=== PATIENT | male | born 1980 | race Caucasian/White ===

== ENCOUNTER 2023-04-03 15:13 | Outpatient (CLI) | payer OTHER, SELFPAY ==
--- NOTE | 2023-04-03 15:30 | MR_ITS ---
[facility] [address] [facility] [address] Phone:?[phone] Fax:?[phone] Referring Physician Information: Virgil Massey M.D. [address] [facility] [address] Phone:?[phone] Fax:?[phone] Patient:Darrin Tse D.O.B:?1980 Sex:?Male Phone:?[phone] [facility] MRN:?[id number] Exam Date:?04/03/2023 EXAM: MRI of the LEFT KNEE, without contrast CLINICAL: Left knee pain. Evaluate for meniscal tear. COMPARISONS: X-rays dated 03/15/2023. TECHNICAL: Multiplanar multisequence MRI of the left knee was obtained. SEDATION: None. CONTRAST: None. FINDINGS: Ligaments: ACL: Intact and unremarkable. PCL: Intact and unremarkable. MCL: Intact and unremarkable. LCL: Intact and unremarkable. Posterolateral corner: Popliteus, biceps femoris, iliotibial band, and the popliteofibular ligament appear intact. Posteromedial corner: Semimembranosus, pes anserine tendons and posterior oblique ligament appear intact. Extensor mechanism: Patellar tendon: Intact, without tendinopathy. Quadriceps tendon: Intact, without tendinopathy. Retinacula: Medial and lateral retinacula are intact. Fat pads: Unremarkable infrapatellar Hoffa's, quadriceps and prefemoral fat pads. Patellofemoral joint: Patella: There is mild chondral heterogeneity and surface irregularity involving the patella. No chondral defects. Trochlea: There is chondral heterogeneity and deep chondral fissuring involving the central trochlea. Trochlear cartilage otherwise appears maintained. Medial compartment: Medial meniscus: No evidence of discrete meniscal tear or meniscal displacement. Medial cartilage: Small 4 mm segment of high-grade chondral loss involving the lateral aspect of the weightbearing medial femoral condyle on coronal series 8 image 21-22. Medial tibial plateau cartilage is maintained. Lateral compartment: Lateral meniscus: No evidence of discrete meniscal tear or meniscal displacement. Lateral cartilage: No significant chondromalacia. Knee joint: Effusion: Physiologic left knee effusion. Intra-articular bodies:?No convincing bodies identified. Popliteal cyst: None. Bones: No suspicious bone marrow signal alteration or fracture line. IMPRESSION: 1. No evidence of meniscal tear, ligamentous injury, fracture or significant joint effusion. 2. Small 4 mm segment of high-grade chondral loss involving the lateral aspect of the weightbearing medial femoral condyle. Patellofemoral chondromalacia also noted as above. JCZ Electronically signed on 04/04/2023 7:59:00 AM by Dante Nunez D.O.
== END 2023-04-03 15:14 | disposition home or self-care (01) ==
PROVIDERS: PCP Family Medicine; Visit Provider Family Medicine
DX: M25.562 Pain in left knee (principal); M22.42 Chondromalacia patellae, left knee
CPT/HCPCS: 73721

== ENCOUNTER 2024-06-03 13:58 | Outpatient (CLI) | payer BC, SELFPAY | END 2024-06-03 13:59 | disposition home or self-care (01) | PROVIDERS: PCP Family Medicine; Visit Provider Family Medicine | DX: I10 Essential (primary) hypertension (principal); R53.83 Other fatigue | CPT/HCPCS: 80048; 80061; 85025 ==